=== PATIENT | female | born 1945 | race Caucasian/White ===

== ENCOUNTER 2020-06-07 20:11 | Emergency (ER) | payer MEDICARE, OTHER ==
[~2020-06-07 20:11] MED LIST: AMLODIPINE BESYL5 MG PO; CATAPRES0.1 MG PO; CLARITIN 10MG T10 MG PO; CLONAZEPAM0.5 M1 PO; FENOFIBRATE160 MG PO; FLEXERIL 10 MG10 MG PO; LEVAQUIN500 MG PO; LINZESS145 MCG PO; LIPITOR TAB 1010 MG PO; LORTAB 7.5-3251 EACH PO; LOSARTAN POTAS100 MG PO; NORCO 7.5-3251 EACH PO; POTASSIUM CHLO10 ME1 PO; SENOKOT-S TABL1 EACH PO; SYNTHROID50 MCG PO; TENORMIN 50 MG50 MG PO; TYLENOL 325MG325 MG PO; ZANTAC 150 MG150 MG PO; ZETIA 10 MG TAB10 MG PO; ZETIA10 MG PO
[2020-06-07 21:16] LABS: HEMOGLOBIN 15.1 gm/dl (12.3-15.3); RED BLOOD COUNT 4.72 M/UL (4.00-5.10); WHITE BLOOD COUNT 10.7 K/UL (4.5-11.0)
== END 2020-06-07 22:31 | disposition home or self-care (01) ==
LOC: ER1 20:11
PROVIDERS: Internal Medicine
DX: R00.0 Tachycardia, unspecified (principal); I10 Essential (primary) hypertension; Z90.49 Acquired absence of other specified parts of digestive tract
CPT/HCPCS: 71045; 80053; 82550; 82553; 84439; 84443; 84484; 85025; 93005; 99285